=== PATIENT | male | born 1955 | race Caucasian/White ===

== ENCOUNTER → 2017-02-04 | Outpatient (CLI) | payer MEDICARE ==
[2016-01-30 10:35] VITALS: BP 152/85
[~2017-02-04] MED LIST: AVAPRO300 M1 PO; CATAPRES0.1 M1 PO; CATAPRES0.1 MG PO; LABETALOL HYDR200 MG PO; LABETALOL200 MG PO; PLAVIX 75MG TAB75 MG PO; ZOCOR40 M1 PO; ZOCOR40 MG PO
== END ==
LOC: LAB 15:21
DX: E11.9 Type 2 diabetes mellitus without complications (principal); Z12.5 Encounter for screening for malignant neoplasm of prostate; I10 Essential (primary) hypertension; E78.2 Mixed hyperlipidemia

== ENCOUNTER → 2019-05-17 | Outpatient (CLI) | payer MEDICARE ==
[2016-01-30 10:35] VITALS: BP 152/85
[2019-05-17 12:46] LABS: POTASSIUM 4.3 mmol/L (3.5-5.1)
[2019-05-17 12:47] LABS: ALBUMIN 4.1 g/dL (3.4-4.8)
[2019-05-17 12:48] LABS: CALCIUM 8.7 mg/dL (8.3-10.5)
[2019-05-17 12:51] LABS: TOTAL BILIRUBIN 0.7 mg/dL (0.2-1.2)
[2019-05-17 12:54] LABS: PH-URINE 5.5 (5.0 - 8.0); URINE APPEARANCE CLEAR; URINE BILIRUBIN NEGATIVE (NEGATIVE); URINE BLOOD 50 ery/uL (NEGATIVE); URINE COLOR YELLOW; URINE GLUCOSE NEGATIVE (NEGATIVE); URINE KETONE NEGATIVE (NEGATIVE); URINE LEUKOCYTE ESTERASE NEGATIVE (NEGATIVE); URINE NITRATE NEGATIVE (NEGATIVE); URINE PROTEIN(semi-quant) TRACE mg/dL (NEGATIVE); URINE UROBILINOGEN NORMAL (NORMAL)
[2019-05-17 13:29] LABS: MAGNESIUM 1.9 mg/dL (1.60-2.60)
== END ==
LOC: LAB 12:23
PROVIDERS: Internal Medicine
DX: Z12.5 Encounter for screening for malignant neoplasm of prostate (principal); Z12.11 Encounter for screening for malignant neoplasm of colon; I65.23 Occlusion and stenosis of bilateral carotid arteries; E11.9 Type 2 diabetes mellitus without complications; E78.5 Hyperlipidemia, unspecified; I10 Essential (primary) hypertension